=== PATIENT | female | born 1950 | race Caucasian/White ===

== ENCOUNTER → 2017-02-01 | Outpatient (CLI) | payer OTHER ==
[~2017-02-01] MED LIST: IBUP-1050 PO; MULTTAB58 PO; NAPR1TAB9 PO; TRAM-10 PO
--- NOTE | 2017-02-01 17:12 | DIAGNOSTIC IMAGING REPORT ---
RIGHT LOWER EXT JOINT WITHOUT CLINICAL HISTORY: 66 years-old Female with chronic medial and posterior right knee pain without reported trauma. COMPARISON: Right knee radiographs 01/28/2017 TECHNIQUE: Multiplanar, multisequence MRI of the right knee was performed without intravenous contrast. FINDINGS: MENISCI: There is mildly complex obliquely oriented increased T2 signal extending towards the inferior articular surface of the posterior horn and posterior junction medial meniscus seen nicely on image 15 of the sagittal PD series and image 17 of the coronal PD series. Additionally, there is mild blunting of the free attention posterior horn medial meniscus. No meniscal root tear, displaced fragment or paravesical cyst identified. There is mild medial extrusion of the meniscal body into the adjacent meniscal gutter with meggan-meniscal edema. Obliquely oriented increased T2 signal of the posterior horn and posterior junction lateral meniscus is seen nicely on image 6 of the sagittal PD series with extension towards the inferior articular surface and free edge, also seen on image 17 of the coronal PD series. No displaced fragment or parameniscal cyst. CRUCIATE LIGAMENTS: The anterior and posterior cruciate ligaments are normal in signal, morphology and course. COLLATERAL LIGAMENTS: The popliteus tendon, biceps femoris tendon, fibular collateral ligament and iliotibial band are intact. There is mild thickening with intermediate T2 signal noted involving the proximal fibers of the superficial and deep MCL fibers with trace fluid noted both superficial and deep to the ligament. No full-thickness tear or retraction. EXTENSOR MECHANISM: The quadriceps and patellar tendons are intact. The medial and lateral patellar retinacula are intact. KNEE JOINT: There is a small joint effusion. Mild tricompartmental joint space narrowing is noted without focal osteochondral defect or high-grade chondromalacia identified. Low-grade chondromalacia involves the lateral talar facet, mid weightbearing portion of the lateral and medial femoral condyles. Nonspecific minimal bone marrow edema involves the posterior aspect of the lateral tibial plateau which may be reactive. BONE MARROW: As above without acute fracture or marrow replacing process. SOFT TISSUES: There is mild nonspecific edema about the posterior intercondylar notch. There is mild leaking of a 2.7 x 2.3 x 4.7 cm Roland's cyst. IMPRESSION: 1. Mildly complex horizontal undersurface tear of the posterior horn and posterior junction medial meniscus. 2. Horizontal undersurface tear of the posterior horn and posterior junction lateral meniscus extends towards the free. 3. Mild tricompartmental osteoarthritis with small joint effusion. 4. Grade 2 sprain of the MCL. 5. Leaking Roland's cyst is noted which measures up to 4.7 cm. The above report was generated using voice recognition software. It may contain grammatical, syntax or spelling errors. Electronically signed by: Cameron Marquez M.D. 02/01/2017 5:11 PM Dictated Date/Time: 02/01/2017 4:59 PM
== END | disposition home or self-care (01) ==
LOC: C.MRIBC 15:47
PROVIDERS: ATTEND Orthopaedic Surgery
DX: M25.561 Pain in right knee (principal)

== ENCOUNTER → 2017-02-23 | Day surgery (SDC) | payer OTHER ==
[2017-02-10 16:10] VITALS: Ht 160 cm; Wt 54.5 kg
[2017-02-15 09:49] LABS: BASO % 0.6 %; BASO ABS # 0.03 K/uL (0-0.2); COMPLETE YES; EOS % 0.9 %; HEMATOCRIT 43.1 % (37-47); IG% 0.2 %; LYMPH % 30.9 %; LYMPH ABS # 1.67 K/uL (1.2-3.4); MEAN CELL VOLUME 91.9 fL (80-100); MEAN CORPUSCULAR HEMOGLOBIN 30.9 pg (25-34); MEAN CORPUSCULAR HGB CONC 33.6 g/dl (32-36); MEAN PLATELET VOLUME 8.5 fL (7.4-10.4); MONO % 5.7 %; NEUT % 61.7 %; PLATELET COUNT 250 K/uL (130-400); RED BLOOD COUNT 4.69 M/uL (4.2-5.4)
[2017-02-15 10:14] LABS: POTASSIUM 3.8 mmol/L (3.5-5.1)
[~2017-02-23] VITALS: Ht 160 cm; Wt 54.5 kg
[~2017-02-23] MED LIST changes: +ATROPINE SULFATE 0.1 MG/ML 5ML SYR IV PRN; +BUPIVACAINE 0.5 % 5 MG/1 ML MPF 30ML VIAL ONE; +CEFAZOLIN 1000MG/55 ML D5W IV SCH; +DEXAMETHASONE SOD INJ 4 MG/ML VIAL ONE; +EpHEDrine SULFATE INJ 50 MG/ML AMP IV PRN; +EpINEphrine INJ 1MG/ML AMP 1 MG/ML AMP ONE; +FENTANYL CITRATE INJ 50 MCG/1 ML 2 ML VIAL IV PRN; +FENTANYL CITRATE INJ 50 MCG/1 ML 2 ML VIAL ONE; +KETOROLAC TROMETHAMINE 30 MG/ML VIAL ONE; +LACTATED RINGER'S 1000ML 1,000 ML IV SCH; +LIDOCAINE HCL 2% 2 ML VIAL (20MG/ML) ONE; +MIDAZOLAM HCL 1 MG/ML 2ML VIAL ONE; -NAPR1TAB9 PO; +ONDANSETRON INJ 2 MG/ML 2 ML VIAL IV PRN; +ONDANSETRON INJ 2 MG/ML 2 ML VIAL ONE; +OXYCODONE/ACETAMINOPHEN 5-325 TAB PO PRN; +PROPOFOL IV EMULSION 10 MG/ML 20 ML VIAL IV ONE; +ROPIVACAINE 0.5% 5 MG/ML 30 ML VIAL ONE; +SODIUM CHLORIDE 0.9% 1000ML 1,000 ML IV SCH
--- NOTE | 2017-02-23 08:44 | History & Physical Bridge - SC ---
H&P Re-Evaluation Bridge Note: I have examined the patient, reviewed the History & Physical and in the interval since the performance of the History & Physical I have noted the following changes of clinical significance: No changes noted
--- NOTE | 2017-02-23 09:12 | [facility] Post Operative Brief Note ---
Immediate Operative Summary Operative Date Feb 23, 2017. Pre-Operative Diagnosis Right Knee Medial Meniscus Tear, Pain Post-Operative Diagnosis same as preop Procedure(s) Performed RIGHT KNEE ARTHROSCOPY PARTIAL MEDIAL MENISECTOMY Surgeon Dr. Cortez Soil Expert Surgeon(s) FEDE Stone Estimated Blood Loss 0 Findings ABOVE Specimens none per surgeon Anesthesia LMA Complication(s) None Disposition Recovery Room / PACU
--- NOTE | 2017-02-23 09:22 | Discharge Instructions-SurgCtr ---
Discharge Instructions Date of Service Feb 23, 2017. Visit Reason for Visit: Right Knee Medial Meniscus Tear, Pain Discharge Discharge Diagnosis / Problem: SAME ABOVE Discharge Goals Goal(s): Decrease discomfort, Improve function Activity Recommendations Activity Limitations: as noted below Lifting Limitations: gradually increase as tolerated Exercise/Sports Limitations: until after follow-up appointment Shower/Bathe: tomorrow Weightbearing Status: Right weightbearing (as tolerated) Anesthesia . Post Anesthesia Instructions: If you have had General Anesthesia or IV Sedation: * Do not drive today. * Resume driving when surgeon permits. * Do not make important decisions or sign legal documents today. * Call surgeon for: 1. Temperature elevations greater than 101 degrees F. 2. Uncontrollable pain. 3. Excessive bleeding. 4. Persistent nausea and vomiting. 5. Medication intolerance (nausea, vomiting or rash). * For nausea and vomiting use only clear liquids such as: tea, soda, bouillon until nausea subsides, then gradually increase diet as tolerated. * If you have any concerns or questions, call your surgeon's office. If physician is unavailable and it is an emergency, call 911 or go to the nearest emergency room. . Instructions / Follow-Up Instructions / Follow-Up MEDICATIONS: * Resume previous medications unless instructed otherwise by your surgeon. * Always take pain medication on a full stomach or with food to avoid upset stomach. * Do not drink alcohol or drive while taking narcotics. * Ibuprofen or Tylenol may be taken if narcotic not needed. SPECIAL CARE INSTRUCTIONS: __ None _X_ Keep extremity elevated and iced x 48 hours; apply ice 20-30 minutes 8-10 times/day. May remove at night. __ Crutches __ May discard when able __ Brace/Post-op shoe __ 24 hrs/day __ Remove at night _X_ Dressing __ Maintain until seen in office, may shower with plastic over site _X_ Remove dressings in 24-48 hours and then may shower _X_ Cover incisions with band-aids after showering __ Do not remove steri-strips Call physician if chills or temperature rises above 102 degrees or pain unrelieved by prescribed pain medications. Office [phone] Diet Recommendations Home Diet: resume previous diet Procedures Procedures Performed: RIGHT KNEE ARTHROSCOPY PARTIAL MEDIAL MENISECTOMY Pending Studies Studies pending at discharge: no Medical Emergencies . Who to Call and When: Medical Emergencies: If at any time you feel your situation is an emergency, please call 911 immediately. . Non-Emergent Contact Non-Emergency issues call your: Primary Care Provider . . "Provider Documentation" section prepared by Curt Olsen. .
[2017-02-23 10:11] VITALS: TEMP 36.7
--- NOTE | 2017-02-23 10:33 | Anesthesia Progress Nt - [facility] ---
Anesthesia Post Op Note Date & Time Feb 23, 2017 at 10:32 Vital Signs Pain Intensity: 0 Vital Signs Past 12 Hours Date Time Temp Pulse Resp B/P (MAP) Pulse Ox O2 Delivery O2 Flow Rate FiO2 02/23/17 10:11 36.7 62 14 123/74 (90) 97 Room Air 02/23/17 10:06 118/98 02/23/17 10:03 62 16 100 02/23/17 10:03 62 16 02/23/17 10:01 123/64 02/23/17 10:00 36.7 67 14 123/64 100 Room Air 02/23/17 09:58 70 14 02/23/17 09:58 70 14 100 02/23/17 09:56 121/84 02/23/17 09:53 68 17 100 02/23/17 09:53 69 17 02/23/17 09:51 118/81 02/23/17 09:48 67 20 02/23/17 09:48 68 20 100 02/23/17 09:46 95/68 02/23/17 09:43 59 14 100 02/23/17 09:43 59 14 02/23/17 09:41 92/64 02/23/17 09:38 60 12 02/23/17 09:38 59 12 100 02/23/17 09:36 88/60 02/23/17 09:33 63 12 100 02/23/17 09:33 62 12 02/23/17 09:31 87/60 02/23/17 09:29 89/55 02/23/17 09:28 61 17 99 02/23/17 09:28 61 17 02/23/17 09:28 36.0 62 8 89/55 99 Mask 10 02/23/17 07:41 36.3 80 16 106/70 (82) 96 Room Air Notes Mental Status: alert / awake / arousable, participated in evaluation Pt Amnestic to Procedure: Yes Nausea / Vomiting: adequately controlled Pain: adequately controlled Airway Patency, RR, SpO2: stable & adequate BP & HR: stable & adequate Hydration State: stable & adequate Anesthetic Complications: no major complications apparent
[2017-02-23 10:39] VITALS: BP 110/68; PULSE 67; O2SAT 98
--- NOTE | 2017-02-23 17:30 | OPERATIVE REPORT ---
DATE OF OPERATION: 02/23/2017 PREOPERATIVE DIAGNOSIS: Medial meniscus tear, right knee. POSTOPERATIVE DIAGNOSES: 1. Same. 2. Some grade 2 articular changes to flexion surface femoral condyle. PROCEDURE: Right knee arthroscopy, partial medial meniscectomy with chondroplasty medial femoral condyle. SURGEON: Dana ANESTHESIOLOGIST: Chari. ANESTHESIA: LMA. DRAINS: None. COMPLICATIONS: None. CONDITION: The patient tolerated the procedure well and returned to the recovery room in apparent satisfactory condition. INDICATIONS FOR SURGERY: Sade is a 66-year-old female who has had increasing pain and discomfort in her right knee secondary to an injury. She is an avid skier. She has had pain in her right despite conservative care. We went over treatment options elected to go ahead and proceed with arthroscopy. The procedure, expected outcomes and side effects were all explained in detail. DESCRIPTION OF PROCEDURE: The patient was taken to the OR at which time she was placed supine on the operating table and put to sleep by anesthesia department. Examination of right knee was performed. Ligamentous fang was stable. Went ahead and prepped and draped in usual sterile fashion. We began arthroscopic examination in the anteromedial and anterolateral portals. Immediately found a flap tear of the posterior horn of the medial meniscus. You could see the fragment flipping in and out of the joint. We came in with upbiting scissors and full radius resector and trimmed it back to a stable rim. The articular surfaces of the flexor surface had some grade 2-3 articular changes and a chondroplasty was done here. The ACL, lateral compartment was unremarkable. Patellofemoral joint was plica band which were removed. Articular surfaces looked good. The knee then was copiously irrigated. Cannulas were removed. Portals were closed with 4-0 nylon sutures. 30 mL of ropivacaine, 10 mg of Toradol, and 1 mL of epinephrine was placed in the knee joint. Placed a sterile dressing of Xeroform, 4 x 4, ABD, Sof-Rol, and Ad bandage and returned back to recovery room in apparent satisfactory condition. SURGICAL FINDINGS: 1. Medial meniscus tear 2. Grade 2 changes of the medial femoral condyle 3. plica band. I attest to the content of the Intraoperative Record and any orders documented therein. Any exceptions are noted below. ALEXSANDER
== END | disposition home or self-care (01) ==
LOC: X.SURG 07:22
PROVIDERS: ATTEND Orthopaedic Surgery
DX: M23.221 Derangement of posterior horn of medial meniscus due to old tear or injury, right knee (principal)